=== PATIENT | female | born 1980 | race Caucasian/White ===

== ENCOUNTER → 2020-11-04 | Outpatient (CLI) | payer BC | LOC: EMI 08:15 → MRI 11-07 09:00 | DX: S83.511A Sprain of anterior cruciate ligament of right knee, initial encounter (principal) | CPT/HCPCS: 73721 ==

== ENCOUNTER → 2021-02-17 | Outpatient (CLI) | payer BC ==
[2021-02-17 11:44] LABS: BUN/CREATININE RATIO 15 (0-10)
[2021-02-18 08:14] LABS: RHEUMATOID ARTHRITIS FACTOR <10.0 IU/mL (0.0-13.9)
[2021-02-18 09:14] LABS: VITAMIN D, 25-HYDROXY 28.5 ng/mL (30.0-100.0)
[2021-02-18 14:14] LABS: THYROGLOBULIN ANTIBODY <1.0 IU/mL (0.0-0.9); THYROID PEROXIDASE (TPO) AB 10 IU/mL (0-34)
== END ==
LOC: LAB 09:35
PROVIDERS: Family Medicine
DX: Z13.828 Encounter for screening for other musculoskeletal disorder (principal); Z13.89 Encounter for screening for other disorder; E78.5 Hyperlipidemia, unspecified; E55.9 Vitamin D deficiency, unspecified
CPT/HCPCS: 36415; 80053; 80061; 84439; 84443; 84481; 84550; 85652; 86038; 86376; 86431; 86800

== ENCOUNTER → 2021-05-17 | Outpatient (CLI) | payer BC | LOC: LAB 12:12 | DX: R07.9 Chest pain, unspecified (principal) | CPT/HCPCS: 36415; 82550; 82553; 84484 ==